=== PATIENT | female | born 1960 | race Caucasian/White ===

== ENCOUNTER 2017-01-23 00:05 | Inpatient (IN) | payer BC ==
[~2017-01-23] VITALS: Ht 160 cm; Wt 72.0 kg
[2017-01-23 01:02] LABS: HEMATOCRIT 40.1 % (36.0-48.0); HEMOGLOBIN 13.8 g/dL (12-16); LYMPHOCYTES 33.6 % (15-50); MCH 30.4 pg (26.0-34.0); MCHC 34.4 g/dL (31.0-37.0); MCV 88.3 fL (80.0-100.0); MEAN PLATELET VOLUME 8.8 fL (7.4-10.4); NEUTROPHILS 58.4 % (40-80); PLATELET COUNT 302 10x3/uL (130-400); RBC 4.54 10x6/uL (4.00-5.40); RDW 12.1 % (11.5-14.5); WBC 9.6 10x3/uL (4.8-10.8)
[2017-01-23 01:15] LABS: APTT 28.9 SECONDS (22.8-39.4); INR 0.88 (0.85-1.17); PROTIME 11.8 SECONDS (11.6-15.0)
[2017-01-23 01:19] LABS: ALBUMIN 3.4 g/dL (3.4-5.0); ALKALINE PHOSPHATASE 77 U/L (46-116); ALT (SGPT) 25 U/L (10-68); CALC OSMOLALITY 274 mosm/kg (275-300); CALCIUM 8.9 mg/dL (8.5-10.1); CARBON DIOXIDE 24.4 mmol/L (21.0-32.0); CHLORIDE - SERUM 102 mmol/L (98-107); CREATININE - SERUM 0.8 mg/dL (0.6-1.3); GLUCOSE 100 mg/dL (74-106); LIPASE 1158 U/L (73-393); POTASSIUM - SERUM 4.1 mmol/L (3.5-5.1); PROTEIN - SERUM 7.1 g/dL (6.4-8.2); SODIUM 138 mmol/L (136-145); UREA NITROGEN 11 mg/dL (7-18); eGFR NON AFRICAN AMERICAN 78 mL/min (90-120)
[2017-01-23 01:32] LABS: APPEARANCE CLEAR (CLEAR); BILIRUBIN NEGATIVE (NEGATIVE); COLOR YELLOW (YELLOW); GLUCOSE 100 mg/dL (NEGATIVE); KETONE NEGATIVE (NEGATIVE); NITRITE NEGATIVE (NEGATIVE); PROTEIN NEGATIVE (NEGATIVE); UROBILINOGEN NORMAL (NORMAL)
[2017-01-23 01:33] LABS: BACTERIA FEW /hpf (NONE SEEN); EPITHELIAL CELLS 0-5 /hpf (0-5); MUCUS >1+ /lpf (NONE SEEN); RED CELLS - URINE 0-5 /hpf (0-5); WHITE CELLS - URINE 0-5 /hpf (0-5)
[2017-01-23 04:49] VITALS: Ht 160 cm; Wt 72.0 kg
--- NOTE | 2017-01-23 04:49 | NUR ---
PATIENT ARRIVED FROM THE ER VIA WHEELCHAIR, ALERT AND ORIENTED TO CALL LIGHT, CALL LIGHT PLACED IN REACH. WILL CONTINUE TO MONITOR.
[2017-01-23 05:19] VITALS: BP 128/86
[2017-01-23 08:11] VITALS: BP 100/58
[2017-01-23 11:57] VITALS: BP 119/61
[2017-01-23 16:13] VITALS: BP 113/68
--- NOTE | 2017-01-23 17:00 | NUR ---
ALERT AND ORIENTED X4. RESTING IN BED. PAIN MANAGEMENT CONTINUED. DENIES ANY NEEDS AT THIS TIME. CONTINUE PLAN OF CARE AND SAFETY PRECAUTIONS.
--- NOTE | 2017-01-23 19:40 | NUR ---
PT C/O PAIN. HOLDING LEFT SIDE. ASKS FOR PAIN MED. PAIN MED GIVEN ORDERED TO PT LEFT AC IV. PT NS INFUSING AT 100. PT IS AAO. TALKS ABOUT SEVERE PAIN IN LEFT SIDE. OFFERED PT A PILLOW TO SPLINT HER SIDE WHILE COUGHING. PT ACCEPTED. PT DENIES ANY OTHER NEEDS. STATES NAUSEA IS UNDERCONTROL AT THIS TIME. ANGELIKA BROOKS
[2017-01-23 20:55] VITALS: BP 110/62
[2017-01-24 00:45] VITALS: BP 91/57
--- NOTE | 2017-01-24 00:45 | NUR ---
PT ASLEEP. RESPIRATIONS EVEN AND UNLABORED. NO S/S OF DISTRESS. RRR. PT AROUSES TO VERBAL STIMULI. DENIES ANY NEEDS. NS INFUSING TO LEFT AC AT 100. BED LOW AND CALL LIGHT IN REACH. WILL CPOC
[2017-01-24 05:39] LABS: BASOPHILS 0.1 % (0-2); EOSINOPHILS 1.3 % (0-7); HEMATOCRIT 39.7 % (36.0-48.0); HEMOGLOBIN 12.6 g/dL (12-16); IMMATURE GRANULOCYTES 0.1 % (0-5); LYMPHOCYTES 32.5 % (15-50); MCH 30.3 pg (26.0-34.0); MCHC 31.7 g/dL (31.0-37.0); MEAN PLATELET VOLUME 9.7 fL (7.4-10.4); MONOCYTES 5.8 % (2-11); NEUTROPHILS 60.2 % (40-80); PLATELET COUNT 290 10x3/uL (130-400); RBC 4.16 10x6/uL (4.00-5.40); RDW 12.9 % (11.5-14.5)
[2017-01-24 05:43] LABS: MCV 95.4 fL (80.0-100.0); WBC 6.9 10x3/uL (4.8-10.8)
--- NOTE | 2017-01-24 05:57 | NUR ---
PT COMPLAINS OF LEFT SIDE PAIN THAT FEELS A LITTLE BETTER BUT IS STILL SORE. INCREASES WHEN SHE MOVES OR COUGHS. PT STATES IT IS A 8/10 IF NOT MOVING BUT AN EXCRUTIATING 10/10 IF MOVING. PT DENIES ANY OTHER COMPLAINS,. STATES HER NAUSEA IS UNDERCONTROL AT THIS TIME. PT DENIES ANY NEEDS. NO S/S OF DISTRESS. WILL CPOC
[2017-01-24 05:59] LABS: ALBUMIN 2.9 g/dL (3.4-5.0); ALKALINE PHOSPHATASE 87 U/L (46-116); AMYLASE - SERUM 97 U/L (25-115); BILIRUBIN - TOTAL 0.48 mg/dL (0.2-1.3); CALC OSMOLALITY 272 mosm/kg (275-300); CALCIUM 7.9 mg/dL (8.5-10.1); CARBON DIOXIDE 24.5 mmol/L (21.0-32.0); CHLORIDE - SERUM 104 mmol/L (98-107); CREATININE - SERUM 0.8 mg/dL (0.6-1.3); GLUCOSE 71 mg/dL (74-106); LIPASE 222 U/L (73-393); POTASSIUM - SERUM 4.3 mmol/L (3.5-5.1); PROTEIN - SERUM 6.3 g/dL (6.4-8.2); SODIUM 138 mmol/L (136-145); TRIGLYCERIDE 81 mg/dL (30-200); UREA NITROGEN 11 mg/dL (7-18); eGFR NON AFRICAN AMERICAN 78 mL/min (90-120)
[2017-01-24 06:05] LABS: ALT (SGPT) 199 U/L (10-68)
[2017-01-24 06:12] VITALS: BP 101/54
[2017-01-24 07:47] VITALS: BP 103/62
--- NOTE | 2017-01-24 08:36 | NUR ---
AM ROUNDS - PT IS IN BED AT THIS TIME AND AWAKE. MONITOR SHOWING SR, HR 80. PT ON ROOM AIR. IV LEFT AC, NS AT 100CC/HR. BED AT LOWEST POSITION. CALL KIM IN USE/REACH. SIDE RAILS UP X2. NO NEEDS AT THIS TIME. WILL CONTINUE TO MONITOR
[2017-01-24 11:48] VITALS: BP 108/62
[2017-01-24 13:39] LABS: UDS - AMPHET NEGATIVE QUAL (NEGATIVE); UDS - BARB NEGATIVE QUAL (NEGATIVE); UDS - BENZO NEGATIVE QUAL (NEGATIVE); UDS - COCAINE NEGATIVE QUAL (NEGATIVE); UDS - OPIATE POSITIVE QUAL (NEGATIVE); UDS - PCP NEGATIVE QUAL (NEGATIVE); UDS - THC NEGATIVE QUAL (NEGATIVE)
--- NOTE | 2017-01-24 18:28 | NUR ---
PT IN BED AT THIS TIME WITH NO NEEDS. WILL CONTINUE TO MONITOR
[2017-01-24 21:12] VITALS: BP 126/76
[2017-01-25 00:52] VITALS: BP 95/62
--- NOTE | 2017-01-25 05:23 | NUR ---
VULCANIZER RUBBER PLATE AT BEDSIDE TO OBTAIN VITALS, CALL LIGHT IN REACH. WILL CONTINUE WITH PLAN OF CARE.
[2017-01-25 05:53] VITALS: BP 106/71
[2017-01-25 06:18] LABS: BASOPHILS 0.4 % (0-2); EOSINOPHILS 1.7 % (0-7); HEMATOCRIT 38.5 % (36.0-48.0); HEMOGLOBIN 12.3 g/dL (12-16); IMMATURE GRANULOCYTES 0.1 % (0-5); LYMPHOCYTES 35.4 % (15-50); MCH 30.4 pg (26.0-34.0); MCHC 31.9 g/dL (31.0-37.0); MCV 95.3 fL (80.0-100.0); MEAN PLATELET VOLUME 9.7 fL (7.4-10.4); MONOCYTES 6.8 % (2-11); NEUTROPHILS 55.6 % (40-80); PLATELET COUNT 308 10x3/uL (130-400); RBC 4.04 10x6/uL (4.00-5.40); RDW 12.6 % (11.5-14.5); WBC 7.1 10x3/uL (4.8-10.8)
[2017-01-25 06:36] LABS: ALKALINE PHOSPHATASE 85 U/L (46-116); AMYLASE - SERUM 100 U/L (25-115); CALC OSMOLALITY 274 mosm/kg (275-300); CARBON DIOXIDE 27.4 mmol/L (21.0-32.0); CHLORIDE - SERUM 104 mmol/L (98-107); CREATININE - SERUM 0.8 mg/dL (0.6-1.3); GLUCOSE 92 mg/dL (74-106); LIPASE 338 U/L (73-393); POTASSIUM - SERUM 3.7 mmol/L (3.5-5.1); PROTEIN - SERUM 6.6 g/dL (6.4-8.2); SODIUM 138 mmol/L (136-145); UREA NITROGEN 10 mg/dL (7-18); eGFR NON AFRICAN AMERICAN 78 mL/min (90-120)
[2017-01-25 06:51] LABS: ALT (SGPT) 140 U/L (10-68)
--- NOTE | 2017-01-25 07:30 | NUR ---
REPORT RECEIVED. RR EVEN AND UNLABORED, PT DENIES NEEDS AT THIS TIME. WILL CTM.
[2017-01-25 08:00] VITALS: BP 143/84
[2017-01-25 13:20] VITALS: BP 109/63
--- NOTE | 2017-01-25 14:00 | NUR ---
PT UP WALKING THE HALLS. RR EVEN AND UNLABORED, PTS GAIT IS STEADY, REQUESTED PAIN MEDICATION. WILL GIVE UPON RETURN TO ROOM AND CTM.
[2017-01-25 16:47] VITALS: BP 94/60
--- NOTE | 2017-01-25 18:30 | NUR ---
PT RESTING QUILETLY, REQUESTED PAIN MEDICINE, WILL GIVE. WHEN COLLECTING I&O FOR THE DAY, PT REPORTED VERY LITTLE URINE OUTPUT. BLADDER SCANNED PT, 0MLS SHOWN ON BLADDER SCANNER. PT DENIES URGE TO VOID. WILL PASS ALONG IN SHIFT REPORT.
--- NOTE | 2017-01-25 19:00 | NUR ---
REPORT RECIEVED, WILL ASSESS AND MONITOR PT.
--- NOTE | 2017-01-25 19:19 | NUR ---
SPOKE TO SUSANNE GUEVARA APN ABOUT PT CONDITION. GAVE NO NEW ORDERS, JUST CONTINUE FLUIDS AND MONITOR I&O, REPORTED TO TITLE CLOSER NURSE.
--- NOTE | 2017-01-25 19:20 | NUR ---
SHIFT ASSESSMENT COMPLETE, PLEASE SEE FLOW SHEETS FOR FULL DETAILS. RR EVEN AND UNLABORED THOUGH SHALLOW. C/O PAIN IN LEFT FLANK 12/12. S1S2 HEARD, NSR NOTED ON CM. BS ACTIVE X4, GETS UP TO RR WHEN NEEDED THOUGH HAVING DIFFICULTY VOIDING ATT PER PT. BRUISING ON LEFT FLANK NOTED DUE TO FALL AT HOME PER H&P. ASKED FOR ICE PACK, THIS WAS PROVIDED. BED LOW AND LOCKED, CALL LIGHT IN REACH. WILL CPOC.
[2017-01-25 20:35] VITALS: BP 134/84
[2017-01-26 00:50] VITALS: BP 112/80
--- NOTE | 2017-01-26 03:18 | NUR ---
RESTING, NO S&S ACUTE DISTRESS NOTED. BED LOW AND LOCKED, CALL LIGHT IN REACH. WILL CPOC.
[2017-01-26 05:12] VITALS: BP 124/82
[2017-01-26 05:54] LABS: BASOPHILS 0.1 % (0-2); EOSINOPHILS 2.1 % (0-7); HEMATOCRIT 34.1 % (36.0-48.0); HEMOGLOBIN 11.1 g/dL (12-16); IMMATURE GRANULOCYTES 0.1 % (0-5); LYMPHOCYTES 31.7 % (15-50); MCH 30.8 pg (26.0-34.0); MCHC 32.6 g/dL (31.0-37.0); MCV 94.7 fL (80.0-100.0); MEAN PLATELET VOLUME 9.8 fL (7.4-10.4); MONOCYTES 7.8 % (2-11); NEUTROPHILS 58.2 % (40-80); PLATELET COUNT 259 10x3/uL (130-400); RDW 12.7 % (11.5-14.5)
[2017-01-26 06:51] LABS: ALBUMIN 2.7 g/dL (3.4-5.0); ALKALINE PHOSPHATASE 70 U/L (46-116); AMYLASE - SERUM 75 U/L (25-115); CALCIUM 7.9 mg/dL (8.5-10.1); CARBON DIOXIDE 24.2 mmol/L (21.0-32.0); CHLORIDE - SERUM 105 mmol/L (98-107); CREATININE - SERUM 0.7 mg/dL (0.6-1.3); GLUCOSE 101 mg/dL (74-106); LIPASE 178 U/L (73-393); POTASSIUM - SERUM 3.9 mmol/L (3.5-5.1); PROTEIN - SERUM 5.9 g/dL (6.4-8.2); SODIUM 138 mmol/L (136-145); eGFR NON AFRICAN AMERICAN > 90 mL/min (90-120)
[2017-01-26 06:53] LABS: ALT (SGPT) 100 U/L (10-68); CALC OSMOLALITY 273 mosm/kg (275-300); UREA NITROGEN 6 mg/dL (7-18)
--- NOTE | 2017-01-26 07:51 | NUR ---
INTRODUCED SELF TO PT. PT RESTING IN BED, DENIES NEEDS. WCTM.
[2017-01-26 08:00] VITALS: BP 128/75
[2017-01-26 11:48] VITALS: BP 134/75
[2017-01-26 16:15] VITALS: BP 131/76
--- NOTE | 2017-01-26 18:39 | NUR ---
AFTER TWO SUPPOSITORIES PT IS HAVING BM'S THAT CONSIST OF YELLOW MUCOUS AND FOUL SMELL. SUSANNE DODSON HAS BEEN PAGED TWICE.
[2017-01-26 21:38] VITALS: BP 115/74
--- NOTE | 2017-01-27 00:24 | NUR ---
PT IN BED RESTING QUIETLY. BED IN LOW POSITION, CALL LIGHT WITHIN REACH. WILL CPOC.
[2017-01-27 01:53] VITALS: BP 132/69
--- NOTE | 2017-01-27 02:33 | NUR ---
PT IN BED RESTING. EVEN AND UNLABORED RESPIRATIONS NOTED.
[2017-01-27 04:59] VITALS: BP 107/68
[2017-01-27 06:07] LABS: BASOPHILS 0.5 % (0-2); EOSINOPHILS 3.9 % (0-7); HEMATOCRIT 32.5 % (36.0-48.0); HEMOGLOBIN 10.7 g/dL (12-16); LYMPHOCYTES 42.2 % (15-50); MCH 30.7 pg (26.0-34.0); MCHC 32.9 g/dL (31.0-37.0); MCV 93.4 fL (80.0-100.0); MEAN PLATELET VOLUME 9.2 fL (7.4-10.4); MONOCYTES 7.2 % (2-11); NEUTROPHILS 46.2 % (40-80); PLATELET COUNT 223 10x3/uL (130-400); RBC 3.48 10x6/uL (4.00-5.40); RDW 12.6 % (11.5-14.5); WBC 5.6 10x3/uL (4.8-10.8)
[2017-01-27 06:42] LABS: ALBUMIN 2.5 g/dL (3.4-5.0); ALKALINE PHOSPHATASE 68 U/L (46-116); ALT (SGPT) 83 U/L (10-68); AMYLASE - SERUM 74 U/L (25-115); CALC OSMOLALITY 274 mosm/kg (275-300); CALCIUM 7.9 mg/dL (8.5-10.1); CARBON DIOXIDE 26.4 mmol/L (21.0-32.0); CHLORIDE - SERUM 105 mmol/L (98-107); CREATININE - SERUM 0.7 mg/dL (0.6-1.3); GLUCOSE 116 mg/dL (74-106); LIPASE 184 U/L (73-393); POTASSIUM - SERUM 3.8 mmol/L (3.5-5.1); PROTEIN - SERUM 5.6 g/dL (6.4-8.2); SODIUM 138 mmol/L (136-145); UREA NITROGEN 6 mg/dL (7-18); eGFR NON AFRICAN AMERICAN > 90 mL/min (90-120)
--- NOTE | 2017-01-27 07:15 | NUR ---
RECEIVED REPORT. ASSUMED CARE OF PATIENT. CALL LIGHT WITHIN REACH. PATIENT UP AMBULATING IN ROOM. RESP EVEN AND UNLABORED. NO DISTRESS.
[2017-01-27 08:35] VITALS: BP 129/69
--- NOTE | 2017-01-27 10:10 | NUR ---
MEDICATED FOR PAIN AT THIS TIME. NO DISTRESS.
[2017-01-27] MEDS ORDERED: MIRALAX17 GM PO (12:02)
[2017-01-27] MEDS ORDERED: DULCOLAX10 MG/SUPP RC (12:02)
[2017-01-27] MEDS ORDERED: HYDROCODON-ACE1 EAC7 PO (12:03)
[2017-01-27 12:12] VITALS: BP 106/59
--- NOTE | 2017-01-27 13:58 | NUR ---
1340 20 GAUGE REMOVED FROM RIGHT WRIST. CATHETER TIP INTACT. NO BLEEDING FROM SITE. 2X2 GAUZE APPLIED AND SECURED WITH TAPE. 1345 DISCHARGE INSTRUCTIONS PROVIDED. VERBALIZED UNDERSTANDING OF ALL INSTRUCTIONS PROVIDED. HARD SCRIPT FOR [place] GIVEN TO PATIENT. COPY MADE AND PLACED WITH DISCHARGE INSTRUCTIONS. 1350 PATIENT AMBULATED OFF UNIT WITH DAUGHTER. PATIENT REFUSED WHEELCHAIR. PATIENT LEFT UNIT WITH ALL PERSONAL BELONGINGS. NO ACUTE DISTRESS LEAVING UNIT. PATIENT DISCHARGED TO HOME WITH FAMILY.
[2017-01-29 11:10] LABS: IGG SUBCLASS 1 324 mg/dL (248-810); IGG SUBCLASS 2 429 mg/dL (130-555); IGG SUBCLASS 3 66 mg/dL (15-102); IGG SUBCLASS 4 19 mg/dL (2-96)
--- NOTE | 2017-01-30 15:43 | CN ---
PATIENT NAME:JODY SCHWARZ MEDICAL RECORD: [id number] : 60 LOCATION:. D.[id number] ADMIT DATE: 01/24/17 ACCOUNT: [id number] CONSULTING PHYSICIAN: DUDLEY SOTO MD REFERRING PHYSICIAN: EVELIN RUSSELL MD DATE OF CONSULTATION: 01/24/2017 CONSULTATION NOTE ADDENDUM CHIEF COMPLAINT: Pain. The patient is having pain as well as nausea. She has not had a bowel movement in several days. The patient was on a ladder and missed a step and fell. She injured her left back. The patient is a poor historian. Palpation aggravates. Nothing alleviates. I examined the patient. I personally reviewed the CT report. I personally reviewed the small-bowel follow-through images. She describes her pain as severe. She has some splinting with deep inspiration. The patient was seen in the radiology department. The entire examination was performed in the presence of a female anatomical embalmer. Due to the prompt flow of contrast from the small bowel to the colon, I think that this is an ileus which is resolving. I am going to start her on a diet. I will see her on a p.r.n. basis. This is a consultation note addendum. For the typed portion of the consult note, please see the chart. This would include the past medical and surgical history, allergies, current medications, and social history as well as family history. REVIEW OF SYSTEMS: Positive for back pain. Positive for flank pain. Positive for dyspnea. Positive for left upper quadrant abdominal pain. Positive for nausea while she was in the radiology department. No headache. Positive for anxiety. Review of systems is negative other than as described above. PHYSICAL EXAMINATION: GENERAL: The patient does appear acutely ill. Also appears chronically ill. The entire physical examination was performed in the presence of a female anatomical embalmer. VITAL SIGNS: Reviewed. EARS: External ears appear normal. EYES: Extraocular movements are intact. NECK: Trachea is midline. CHEST: No intercostal retractions. There is some splitting of the left. ABDOMEN: Mildly distended. It is not tympanitic. It is diffusely tender, worse in the left upper quadrant. PSYCHIATRIC: Anxious affect. NEUROLOGIC: Nonfocal. No lethargy. The patient answers questions appropriately and moves all extremities well. BACK: No thoracic kyphosis. LYMPHATIC: No lymphangitic streaking of the exposed extremities. IMPRESSION: Resolving ileus. PLAN: I will start her on a diet. I will give her single dose of Reglan. CONSULT REPORT [id number] JODY SCHWARZ TRANSINT:[id number] Voice Confirmation ID: [id number] DOCUMENT ID: [id number] DUDLEY SOTO MD at 1543 CC: [id number] DICTATION DATE: 01/24/171713 MARINE CARGO SURVEYOR: 01/24/171739 DIS IN 01/27/17 [id number] [place] [address]
== END 2017-01-27 14:00 | disposition home or self-care (01) | DRG 439 ==
LOC: D.ER 00:05 → OBSVTIME 03:33 → D.M2 03:33
PROVIDERS: Emergency Medicine; Internal Medicine Gastroenterology; ADMIT Family Medicine Adult Medicine
DX: K85.90 Acute pancreatitis without necrosis or infection, unspecified (principal); K56.7 Ileus, unspecified; F17.203 Nicotine dependence unspecified, with withdrawal; T14.8XXA Other injury of unspecified body region, initial encounter; W11.XXXA Fall on and from ladder, initial encounter; K21.9 Gastro-esophageal reflux disease without esophagitis; F41.9 Anxiety disorder, unspecified; Z86.73 Personal history of transient ischemic attack (TIA), and cerebral infarction without residual deficits

== ENCOUNTER 2018-12-25 09:00 | Outpatient (CLI) | payer OTHER ==
[2017-01-23 04:49] VITALS: BMI 26.1
[~2018-12-25 09:00] MED LIST: DULCOLAX10 MG/SUPP RC; HYDROCODON-ACE1 EAC7 PO; MIRALAX17 GM PO
== END 2018-12-25 10:00 | disposition home or self-care (01) ==
LOC: D.MAMMO 09:00
PROVIDERS: ATTEND Family Medicine
DX: Z12.31 Encounter for screening mammogram for malignant neoplasm of breast (principal)

== ENCOUNTER 2019-03-03 14:30 | Outpatient (CLI) | payer OTHER ==
[2017-01-23 04:49] VITALS: BMI 26.1
== END 2019-03-03 15:00 | disposition home or self-care (01) ==
LOC: D.MAMMO 14:30
PROVIDERS: ATTEND Family Medicine
DX: R92.8 Other abnormal and inconclusive findings on diagnostic imaging of breast (principal)